=== PATIENT | female | born 1990 ===

== ENCOUNTER 2024-03-28 16:50 | Emergency (ER) | payer SELFPAY ==
--- OUTSIDE RECORDS SUMMARY | 2024-03-28 18:20 | XMS_ITS | Clinical Summary ---
Author Organization [facility] [employer] Address [place], [place] [address] Care Team Providers Care Assistant Grocery Name Role Phone Isabel Faria Primary Care Provider [phone] Allergies Active Allergy Reactions Criticality Noted Date Comments Azithromycin Nausea Only,Other - Describe In Comment Field 04/07/2012 sick Horse Dander Rash 04/07/2012 Lenox Pollen Rash 04/07/2012 Medications melatonin 10 mg tabIndications:Ins omnia due to mental condition Take 1 Tablet (10 mg) by mouth at bedtime if needed (sleep). 0 3 Active buPROPion (WELLBUTRIN XL) 150 mg Extended-Release tabletIndications: Panic disorder with agoraphobia,Major depressive disorder, recurrent, moderate (HC),Generalized anxiety disorder Take 1 Tablet (150 mg) by mouth every morning. Take with a 300 mg tab for a total of 450 mg daily. 90 Tablet 3 10/14/2023 10:43 AM CDT 4 Active buPROPion (WELLBUTRIN XL) 300 mg Extended-Release tabletIndications: Major depressive disorder, recurrent, moderate (HC) Take 1 Tablet (300 mg) by mouth every morning. Take with 150 mg dose, for daily total of 450 mg. 90 Tablet 3 08/26/2023 12:24 PM CDT 4 Active citalopram (CELEXA) 40 mg tabletIndications: Panic disorder with agoraphobia,Major depressive disorder, recurrent, moderate (HC),Generalized anxiety disorder,Posttraum atic stress disorder Take 1 Tablet (40 mg) by mouth once daily. 90 Tablet 3 10/14/2023 10:43 AM CDT 4 Active hydrOXYzine pamoate 100 mg capsuleIndications :Panic disorder with agoraphobia,Genera lized anxiety disorder,Insomnia due to mental condition Take 1 Capsule (100 mg) by mouth every 6 hours if needed for Anxiety. Wait at least 1 hour between doses. 180 Capsule 3 10/14/2023 10:43 AM CDT 4 Active ibuprofen (ADVIL; MOTRIN) 800 mg tabletIndications: Lumbar radicular pain Take 1 Tablet (800 mg) by mouth every 8 hours if needed for Pain. 60 Tablet 2 10/14/2023 10:43 AM CDT 4 Active rx oxyCODONE 5 mg (ROXICODONE) tablet (ED DC MED)Indications:Ce llulitis of finger of right hand Take 1 Tablet (5 mg) by mouth every 4 hours if needed for Pain. 4 Tablet 4 Active dextroamphetamine- amphetamine (Adderall XR) 10 mg Extended-Release capsuleIndications :ADHD (attention deficit hyperactivity disorder), combined type Take 2 Capsules (20 mg) by mouth once daily. 60 Capsule 10/14/2023 10:43 AM CDT 4 Active spironolactone (ALDACTONE) 100 mg tabletIndications: PCOS (polycystic ovarian syndrome) Take 1 Tablet (100 mg) by mouth every morning. 90 Tablet 4 Active metFORMIN (GLUCOPHAGE XR) 500 mg Extended-Release tabletIndications: PCOS (polycystic ovarian syndrome) Take 4 Tablets (2,000 mg) by mouth once daily with evening meal. 360 Tablet 4 Active tiZANidine (ZANAFLEX) 2 mg tabletIndications: Lumbar radicular pain Take 1-2 Tablets (2-4 mg) by mouth every 6 hours if needed for Muscle Spasm. 60 Tablet 10/14/2023 10:43 AM CDT 4 Active Active Problems Problem Noted Date Diagnosed Date Controlled substance agreement signed 05/21/2023 ADHD (attention deficit hype ractivity disorder), combined type 05/19/2023 Pap smear for cervical cancer screening 12/07/19 23 Overview (12/06/2022): 12/02/2022: NIL/HPV negative Plan: Pap and HPV in 5 years. Alcohol use disorder, severe , in sustained remission since 201110/04/2022 Panic disorder with agoraphobia 09/05/2022 Insomnia due to mental condition 09/05/2022 Major depressive disorder, recurrent, moderate 0 08/02/2022 Generalized anxiety disorder 06/18/2022 PRATIBHA (obstructive sleep apnea) 06/29/2020 PCOS (polycystic ovarian syndrome) 06/29/2020 Class 3 severe obesity in adult 02/05/2019 Posttraumatic stress disorder 08/04/2014 Gastroesophageal reflux disease 04/07/2012 Metabolic syndrome 05/28/2011 Resolved Problems Problem Noted Date Diagnosed Date Resolved Date Controlled substance agreement signed 08/02/2022 05/19/2023 Overview (04/15/2023): 08/02/2022 with psychiatry for stimulants and benzodiazepines. Radha Comer M.D. Disease due to severe acute respiratory syndrome coronavirus 2 (SARS-CoV-2) 09/05/202007/12 Major depressive disorder, r ecurrent, moderate 02/08/2019 08/06/2022 Depression, major, single episode, severe 02/05/2019 08/06/2022 Attention deficit hyperactiv ity disorder (ADHD) 07/02/2011 08/06/2022 Overview (08/06/2022): ADHD. Encounters Date Type Department Care Team Description 03/28/2024 Telephone [facility] [address] [place] [address] Staff, Other Clinical Mental Health Intake from Last 3 Months Immunizations Name Administration Dates Next Due COVID-19 VACCINE SPIKEVAX (M ODERNA 50MCG/0.5ML) 12YO+ PFS 12/02/2022 COVID-19 vaccine (Embly NTech 30mcg/0.3mL) 12YO+ VAISHALI-SUCROSE PF, MDV 06/02/2021 COVID-19 vaccine (Embly NTech 30mcg/0.3mL) PF, MDV 02/17/2021,12/28/2020 Influenza Virus, Unspecified 03/01/2014,11/21/19 13 Influenza, IIV4 12/02/2022,12/29/2021,12/28/2020 Tdap 12/02/2022,03/18/2011 Tuberculin (PPD) 07/29/2016 Family History Medical History Relation Name Comments ADD / ADHD Brother Allergies Brother Anxiety disorder Brother Depression Brother Alcoholism Father Drug Abuse Father Allergies Mother Asthma Mother Depression Mother OCD Mother Allergies Sister 1 Allergies Sister 2 Relation Name Status Comments Brother Father Mother Sister 1 Sister 2 Alive Social History Tobacco Use Types Packs/Day Years Used Date Smoking Tobacco: Former Cigarettes 0.5 1.8 0 06/10/2022 - 2013 Smokeless Tobacco: Never Tobacco Cessation:Counseling Given: Not Answered Alcohol Use Standard Drinks/Week Comments Not Currently 0 (1 standard drink = 0.6 oz pur e alcohol) PHQ-2 Answer Date Recorded PHQ-2 TOTAL SCORE 2 06/25/2023 Social Connections Answer Date Recorded Do you often feel lonely or isolated from those around you? 0 05/16/2023 Alcohol Use Answer Date Recorded How often do you have a drink containing alcohol ? 1 12/02/2022 How many drinks containing a lcohol do you have on a typical day when you are drinking? 1 12/02/2022 How often do you have five or more drinks on one occasion? 0 12/02/2022 Financial Resource Strain Answer Date R ecorded Difficulty of Paying Living Expenses 3 05/16/2023 Difficulty of Paying Living Expenses Not on file 05/16/2023 Food Insecurity Answer Date Recorded Do you worry your food will run out before you are able to buy more? 1 05/16/2023 Transportation Needs Answer Date Record ed Does lack of transportation keep you from medica l appointments? 1 05/16/2023 Does lack of transportation keep you from work, meetings or getting things that you need? 1 05/16/2023 Housing Stability Answer Date Recorded What is your housing situation today? 1 05/16/2023 Interpersonal Safety Answer Date Record ed Are you being hit, kicked, p ushed or yelled at (see row info)? No 07/24/2023 Interpersonal Safety Abuse 12 - 18 Not on file 07/24/2023 Interpersonal Safety Ambulatory Vulnerability No t on file 07/24/2023 Utilities Answer Date Recorded Do you have trouble paying f or utilities (for example, heat, electricity, water, phone)? 1 05/16/2023 Comments No Sex and Gender Information Value Date Recorded Sex Assigned at Not on file Legal Sex Female 1:03 PM MARKETING PROGRAMS SPECIALIST Gender Identity Not on file Sexual Orientation Not on file Occupation Industry Job Start Date Job End Date Not on file Not on file Not on file Not on file Obstetrics History Last Filed Vital Signs Vital Sign Reading Time Taken Comments Blood Pressure 110/78 07/24/2023 1:12 PM CDT Pulse 75 07/24/2023 1:12 PM CDT Temperature 36.6 C (97.8 F) 07/24/2023 12:08 PM CDT Respiratory Rate 16 07/24/2023 1:12 PM CDT Oxygen Saturation 99% 07/24/2023 1:12 PM CDT Inhaled Oxygen Concentration - - Weight 125.6 kg (277 lb) 07/24/2023 12:10 PM CDT Height 162.6 cm (5' 4) 07/24/2023 12:10 PM CDT Body Mass Index 47.55 07/24/2023 12:10 PM CDT Plan of Treatment Upcoming Encounters Date Type Department Care Team (Late st Contact Info) Description 04/01/2024 11:00 AM MARKETING PROGRAMS SPECIALIST Appointment [facility] [address] [place] [address] Health Maintenance Due Date Last Done Comments HIV for age 15-65 08/30/2003 Hepatitis C screening for ag e 18-79 2006 Pneumococcal series for age 6-49 (1 of 2 - PCV) 08/30/2007 BMI (ht and wt on same day) for age 18+ 08/03/2023 08/02/2022, 06/18/2022, 10/25/2021, Additional history exists COVID-19 vaccine series ( season) 2023 12/02/2022, 06/02/2021, 02/17/2021, Additional history exists Influenza for age 9-49 10/12/2023 , 12/29/2021, 12/28/2020, Additional history exists Depression screening for age 12+ 06/24/2024 06/25/2023, 05/21/2023, 05/21/2023, Additional history exists Pap test for age 21-65 12/03/2027 12/02/2022, 2022 Tetanus booster 12/02/2032 12/02/2022, 03/18/2011 Tdap Completed 12/02/2022, 03/18/2011 Procedures Procedure Name Priority Date/Time Associated Diagnosis Comments HPV HIGH RISK Routine 12/02/2022 1:30 PM CDT Screening for malignant neoplasm of cervix from Last 3 Months or Most Recently Relevant to Health Maintenance Results * HPV HIGH RISK (12/02/2022 1:30 PM CDT) TYPE 16 Negative Negative 12/04/2022 5:27 PM CDT [facility] TYPE 18 Negative Negative 12/04/2022 5:27 PM CDT [facility] OTHER HIGH RISK TYPES Negative Negative 12/04/2022 5:27 PM CDT [facility] Other (Cervical) Non-Blood / Unknown 12/02/2022 1:30 PM CDT 12/03/2022 11:51 AM CDT Narrative [facility] - 12/04/2022 5:27 PM CDT HPV types 16, 18, 31, 33, 35, 39, 45, 51, 52, 56, 58, 59, 66 and 68 DNA were undetectable or below the pre-set threshold. Methodology: Arash Pa 4800 HPV Test us Isabel PETTIT [employer]CRO[employer] Final Resu lt [facility] [address] [place] [address], [place] from Last 3 Months or Most Recently Relevant to Health Maintenance Insurance [facility] [employer] Advance Directives * Full Code (Latest Code Status on File) Date Activated Date Inactivated Comments 02/05/2019 8:08 PM 02/08/2019 4:19 PM Care Teams Assistant Grocery Relationship Specialty Start Date End Date Isabel Faria PA [address] [place] [address] PCP - General Physician Granulating Blender 08/02/22
--- OUTSIDE RECORDS SUMMARY | 2024-03-28 18:20 | XMS_ITS | Data Portability ---
Author Organization [place] [facility] OFF[facility] Address [address] [place] [address] [facility] [address] Assessment No assessment recorded. Plan of Treatment Reminders Order Date Submit Date Provider Last Modified By Organization Details Last Modified Time Details Appointments None recorded . Lab None recorded . Referral None recorded . Procedures None recorded . Surgeries None recorded . Imaging None recorded . Medication Orders spironol actone 100 mg tablet 2023 ALEKSANDAR Not available 12:45:27 metformi n ER 500 mg tablet,e xtended release 24 hr 2023 [email or web address] Not available 5 10:53:03 dextroam phetamin e-amphet amine 20 mg tablet 2023 [id number], [address] [place], [place], [id number], 4 20:43:16 dextroam phetamin e-amphet amine ER 20 mg 24hr capsule, extend release 2023 [facility] #[id number], [address] [place], [place], [id number], 4 20:43:20 dextroam phetamin e-amphet amine ER 10 mg 24hr capsule, extend release 2023 [email or web address] Not available 5 17:27:59 Celexa 40 mg tablet 2023 ALEKSANDAR Not available 4 12:45:26 Wellbutr in XL 300 mg 24 hr tablet, extended release 2023 ALEKSANDAR Not available 12:45:26 Wellbutr in SR 150 mg tablet, 12 hr sustaine d-releas e 2023 [email or web address] Not available 14:16:23 Patient TargetsNo targets recorded. Patient InstructionsNo instructions recorded. Reason for Referral None Reported. Problems Name Problem SNOMED Code Status Onset Date Resolution Date Notes Provider Name and Address Organization Details Recorded Time Chronic depression 107758504 Active 2023 WENDY HAGER MD [address] [place] [address], [phone], [facility] [employer] 13:03:57 Anxiety 68516930 Active 2023 WENDY HAGER MD [address] [place] [address], [phone], [facility] [employer] 4 13:04:11 Attention deficit hyperactivity disorder 627208934 [place] 2023 [place] [address] [place] [address], [phone], [employer] 4 13:04:26 History of calculus of kidney 721257922 Active 2023 [place] [address] [place] [address], [phone], [facility] [employer] 4 13:05:06 Seasonal allergy 814065319 Active 2023 ERIK BARTON [address] [place] [address], [phone], [facility] [employer] 4 12:12:01 Loss of hair 387309278 Active 2023 After COVID ERIK BARTON [address] [place] [address], [phone], [facility] [employer] 4 12:12:16 Obstructive sleep apnea syndrome 84263455 Active 2023 ERIK BARTON [address] [place] [address] [place], [phone], [facility] 12:21:55 Problem Notes None recorded. Medical Equipment None Reported. Allergies Allergen ID Allergen Name Allergen Category Reaction Reaction Severity Criticality Documentation Date Start Date Code Code System Note Provider Name and Address Organization Details Recorded Time 3325 azithromy alin medicatio n nausea Not available Not available 12/03/2023 36754 RxNorm Not Available Not Available Not Available Medications Name Sig Start Date Stop Date Status Note LastModified by Organization Details LastModified Time metformin 500 mg tablet Take 1 tablet twice a day by oral route. 12/02 completed Not Available Not Available Not Available citalopra m 40 mg tablet TAKE ONE TABLET BY MOUTH EVERY DAY active Not Available Not Available No t Available dextroamp hetamine- amphetami ne 10 mg tablet Take 1 tablet twice a day by oral route. 2024 active Not Available Not Available Not Avai lable spironola ctone 100 mg tablet TAKE ONE TABLET BY MOUTH EVERY DAY active Not Available Not Available No t Available Wellbutri n SR 150 mg tablet, 12 hr sustained -release Take 1 tablet twice a day by oral route. 12/09 completed ordered in error Not Available Not Available Not Available metronida zole 500 mg tablet active Not Available Not Available No t Available Wellbutri n SR 100 mg tablet, 12 hr sustained -release Take 1 tablet twice a day by oral route. 12/09 completed ordered in error Not Available Not Available Not Available cephalexi n 500 mg capsule TAKE ONE CAPSULE BY MOUTH FOUR TIMES A DAY FOR 7 DAYS 03/24 completed Not Available Not Available Not Available dextroamp hetamine- amphetami ne 20 mg tablet Take 1 tablet every day by oral route. 12/12 completed Not Available Not Available Not Available dextroamp hetamine- amphetami ne ER 10 mg 24hr capsule,e xtend release Take 2 capsules every day by oral route. 03/23 completed Not Available Not Available Not Available metformin ER 500 mg tablet,ex tended release 24 hr Take 4 tablets every day by oral route. 2023 active Not Available Not Available Not Avai lable Wellbutri n XL 150 mg 24 hr tablet, extended release Take 1 tablet every day by oral route. 2023 active Not Available Not Available Not Avai lable Wellbutri n XL 300 mg 24 hr tablet, extended release Take 1 tablet every day by oral route. 2023 active Not Available Not Available Not Avai lable Adderall XR 20mg daily 12/02 completed Not Available Not Available Not Available bupropion HCl 150 mg tablet,12 hr sustained -release( smoking deterrent ) TAKE ONE TABLET BY MOUTH TWICE A DAY active Not Available Not Available No t Available Vitals Date Recorded Body weight Respiratory rate Heart rate Systolic blood pressure Diastolic blood pressure Provider Name and Address Organization Details Last Updated DateTime 4 219187. 83 g 14 /min 72 /min 117 mm[Hg] 80 mm[Hg] JOE BARTON- [address] [place], [address] , [facility] [employer] [facility] 4 12:31:06 Social History None recorded. Functional Status None recorded. Mental Status None recorded. Family History Nothing Reported. Medical History No medical history recorded. Gynecological HistoryNo gynecological history recorded. 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 Changed to XR. However, they do not have in stock so prescripti on changed to 2-10mg as previously ordered. Unable to change dose as she has a tenuous MH history and I'm not her regular prescriber . Pharmacist confirmed they will change prior 20mg ordersPDMP reviewed and last refill was 10/06/23 Loss of hair 705064262 L 65.9 Last K 4.0 03/2023; improved on the spironolac tone [id number] KEARA RIVERA, ANP[facility] [address] [facility] [place] [address] 03/24/2024 11:20:20 03/24/2024 12:39:27 Attention deficit hyperactivity disorder, predominantly inattentive type 40875923 F90.0 Sent in short-acti ng in lieu of XR per her request. She wll now start bid dosing.She plans to have health insurance through work. She was provided instructio ns on insurance options our navigators could assist with and how to get connected with them if work option falls through. Anxiety 29995924 F41.9 Persistent depressive disorder 8253281045 F34.1 MH is relatively stable. Discussed alternativ e therapist options and free online resources; particular ly CBT for panic attacks.Co nt current medication s.Sleeping well.Resum e regular therapist once new insurance establishe d.Discusse d public health and crisis only HFC option if needed. Health Concerns Section Related Observation LastModified by Organization Detai ls LastModified Time None Recorded Concern Status LastModified by Organization Details LastModified Time None Recorded Advance Directives Directive None Recorded Payers Encounter Date Sequence Insurance Name Policy Number Policy Lott Covered Member ID Lott Member ID Guarantor Name 12/03/2023 SLIDING FEE SCHEDULE - DISCOUNT Amelia Morejon 03/24/2024 SLIDING FEE SCHEDULE - DISCOUNT Amelia Morejon Notes Date Note Type Note Provider Name and Address Organization Details Recorded Time 12/03/2023 text/html 33 yo female her e to establish care. Was referred from ER. Lost insurance after she lost her job. She is mainly here for medication refill. She is on her last week. TRICIA-7=12; PHQ-9=11 Had insomnia issues before taking Adderall; has untreated PRATIBHA. First diagnosed with ADHD in middle school. No side effects to her medication regimen. Feels Adderall improves her anxiety symptoms. Anxiety really increased in thinking she may run out of medications as last time she ended up in the hospital with a MH crisis when she ran out. Periods are now regular. ROS (-). ERIK BARTON [address] [place], [address], [facility] [employer] 12/03/2023 14:09:59 03/24/2024 text/html Author requested check-in with patient given ongoing CS (now generic Adderall needs). This was originally to be a temporary bridge until she got insurance, but she notes not having insurance yet though has a new job and hopes to get insurance soon. [facility] records reviewed an no recent visits since last seen by me. Last labs a year ago; due Author checked in on MH. She has issues with processing and up/down days. Occasional panic attacks. She manages panic attacks with isolation and able work through them. She is no longer seeing a therapist. since she lost insurance.Sleep: Is sleeping ok.Substance use: No ERIK BARTON [address] [place], [address], [facility] [employer] 03/24/2024 13:40:30 OBGyn Episode No OBEpisode recorded.
--- OUTSIDE RECORDS SUMMARY | 2024-03-28 18:20 | XMS_ITS | Continuity of Care Document ---
Author Organization [facility] luisMILLY guillaume OFFICE Address [address] [place], [place] [address] [address] Assessment No assessment recorded. Plan of Treatment Reminders Order Date Submit Date Provider Last Modified By Organization Details Last Modified Time Details Appointments None record ed. Lab None record ed. Referral None record ed. Procedures None record ed. Surgeries None record ed. Imaging None record ed. Medication Orders None record ed. Patient TargetsNo targets recorded. Patient InstructionsNo instructions recorded. Reason for Referral None Reported. Problems Name Problem SNOMED Code Status Onset Date Resolution Date Notes Provider Name and Address Organization Details Recorded Time Chronic depression 761298747 Active 2023 WENDY HAGER MD [address] [place] [address], [phone], [employer] 4 13:03:57 Anxiety 77170243 Active 2023 WENDY HAGER MD [address] [place] [address], [phone], [facility] 4 13:04:11 Attention deficit hyperactivity disorder 881274482 Active 2023 WENDY HAGER MD [address] [place] [address], [phone], [facility] 4 13:04:26 History of calculus of kidney 631318312 Active 2023 WENDY HAGER MD [address] [place] [address], [phone], [facility] [employer] 4 13:05:06 Seasonal allergy 980289914 Active 2023 JOE BARTON-[address], [phone], [place] [facility] 4 12:12:01 Loss of hair 826358218 Active 2023 After COVID [facility] [address] [facility] [place], [address], [facility] 4 12:12:16 Obstructive sleep apnea syndrome 63287102 Active 2023 [facility] [address] [facility] [facility] [place], [address], [facility] 4 12:21:55 Problem Notes None recorded. Medical Equipment None Reported. Allergies Allergen ID Allergen Name Allergen Category Reaction Reaction Severity Criticality Documentation Date Start Date Code Code System Note Provider Name and Address Organization Details Recorded Time 3325 azithromy alin medicatio n nausea Not available Not available 12/03/2023 15174 RxNorm Not Available Not Available Not Available [...] Available Not Available No t Available Vitals None Recorded Social History None recorded. Functional Status None recorded. Mental Status None recorded. Family History Nothing Reported. Medical History No medical history recorded. Gynecological HistoryNo gynecological history recorded. Obstetrics History GPAL:G 0 P 0 0 0 0 Past Encounters Encounter ID Performer Location Encounter Start Date Encounter Closed Date Diagnosis/Indication Diagnosis SNOMED-CT Code Diagnosis ICD10 Code Diagnosis Note [id number] KEARA RIVERA, ANP-[facility] OFF[facility] [address] [place] [phone] 03/24/2024 11:20:20 03/24/2024 12:39:27 Attention deficit hyperactivity disorder, predominantly inattentive type 46113369 F90.0 Sent in short-acti ng in lieu of XR per her request. She wll now start bid dosing.She plans to have health insurance through work. She was provided instructio ns on insurance options our navigators could assist with and how to get connected with them if work option falls through. Anxiety 58403881 F41.9 Persistent depressive disorder 0979731670 F34.1 MH is relatively stable. Discussed alternativ [...] by Organization Details LastModified Time None Recorded Payers Encounter Date Sequence Insurance Name Policy Number Policy Lott Covered Member ID Lott Member ID Guarantor Name 03/24/2024 SLIDING FEE SCHEDULE - DISCOUNT Amelia Morejon Notes Date Note Type Note Provider Name and Address Organization Details Recorded Time 03/24/2024 text/html Author requested check-in with patient [...] lost insurance.Sleep: Is sleeping ok.Substance use: No KEARA RIVERA, ANP- [address] [place], [address], [facility] 03/24/2024 13:40:30 OBGyn Episode No OBEpisode recorded.
== END 2024-03-28 18:22 | disposition left against medical advice (07) ==
LOC: ED 18:18
PROVIDERS: Emergency Provider Family Medicine
DX: Z53.21 Procedure and treatment not carried out due to patient leaving prior to being seen by health care provider (principal)